=== PATIENT | male | born 1995 | race Caucasian/White ===

== ENCOUNTER 2021-02-28 16:57 | Emergency (ER) | payer OTHER ==
[~2021-02-28] VITALS: Ht 180.3 cm; Wt 94.0 kg
[2021-02-28 17:03] VITALS: BP 141/69
== END 2021-02-28 18:33 | disposition home or self-care (01) ==
LOC: ER 16:59
DX: M79.89 Other specified soft tissue disorders (principal)
CPT/HCPCS: 93971; 99284